=== PATIENT | male | born 1990 | race Caucasian/White ===

== ENCOUNTER → 2020-01-10 09:35 | Outpatient (CLI) | payer OTHER, MEDICAID, SELFPAY ==
--- NOTE | 2020-01-10 09:38 | DI.RAD.S_ITS ---
PROCEDURE: XR CHEST 2V INDICATIONS: Hx wheezing/chest tightness TECHNIQUE: 2 views of the chest were acquired. COMPARISON: None. FINDINGS: Surgical changes and devices: None. Lungs and pleura: Lungs are clear. Probable bronchial wall thickening seen on the lateral projection. No pleural effusions or pneumothorax. Mediastinum: Mediastinal contours are normal. Heart size is normal. Bones and chest wall: No suspicious bony abnormalities. Soft tissues appear unremarkable. IMPRESSION: Probable bronchial wall thickening. This could be seen in reactive airways disease. Lungs are clear. Dictated by: Iker Blackman M.D. on 01/10/2020 at 11:25 Approved by: Iker Blackman M.D. on 01/10/2020 at 11:26
== END ==
PROVIDERS: Referring Provider Registered Nurse Diabetes Educator; Visit Provider Registered Nurse Diabetes Educator
DX: R06.2 Wheezing (principal); R07.89 Other chest pain
CPT/HCPCS: 71046

== ENCOUNTER → 2020-02-13 14:37 | Outpatient (CLI) | payer OTHER, MEDICAID, SELFPAY ==
[2020-02-15 17:10] LABS: COVID19 Sendout Not Detected (Not Detect)
== END ==
PROVIDERS: Visit Provider Nurse Practitioner
DX: Z11.59 Encounter for screening for other viral diseases (principal)
CPT/HCPCS: 87635

== ENCOUNTER → 2020-02-16 08:49 | Outpatient (CLI) | payer OTHER, MEDICAID, SELFPAY ==
--- NOTE | 2020-02-22 10:26 | PM.PFT.1 ---
Pulmonary Function Test Referral & Results Date Patient Seen: 02/16/20 Requesting provider: Yogesh Garcia Results: The spirometry demonstrates an FVC of 6.41 L which is 109% of predicted. The FEV1 was measured at 4.98 L which is 104% of predicted. The FEV1/FVC ratio was 78 which is 94% of predicted. Following the administration of bronchodilator there was at 31% improvement in FEF 25-75%. Lung volumes show an SVC of 6.35 L which is 113% of predicted. The diffusing capacity was measured at 44.26 which is 126% of predicted. The maximum voluntary ventilation was normal Interpretation: This study demonstrates normal pulmonary function
== END ==
PROVIDERS: PCP Registered Nurse Diabetes Educator; Referring Provider Registered Nurse Diabetes Educator; Visit Provider Registered Nurse Diabetes Educator
DX: R06.2 Wheezing (principal); J98.8 Other specified respiratory disorders
CPT/HCPCS: 94060; 94726; 94729

== ENCOUNTER → 2020-10-09 12:08 | Outpatient (CLI) | payer OTHER, MEDICAID, SELFPAY ==
--- NOTE | 2020-10-09 12:09 | DI.US.S_ITS ---
LIMITED ULTRASOUND OF RIGHT BREAST: 10/09/2020 CLINICAL: Palpable right breast lump and tenderness. No prior exams were available for comparison. Color flow and real-time ultrasound of the right breast 10-1 o'clock region were performed on the areas of interest. There is an irregular heterogeneous area suggestive of fibroglandular tissue with indistinct margins in the right breast at 10-1 o'clock anterior depth 1 cm from the nipple. This irregular area of fibroglandular tissue is of mixed echogenicity. This correlates with palpable findings. Color flow imaging demonstrates that there is no increase in vascularity. IMPRESSION: INCOMPLETE: NEEDS ADDITIONAL IMAGING EVALUATION The irregular area of fibroglandular tissue in the right breast is indeterminate. A diagnostic mammogram is recommended. This exam was interpreted at Station ID: [id number]. Electronically Signed By: Kareem Vaca M.D. ddtadeo/:10/09/2020 14:04:11 letter sent: Additional Imaging Needed Ultrasound BI-RADS: 0 Indeterminate
== END ==
PROVIDERS: PCP Registered Nurse Diabetes Educator; Referring Provider Registered Nurse Diabetes Educator; Visit Provider Registered Nurse Diabetes Educator
DX: R92.8 Other abnormal and inconclusive findings on diagnostic imaging of breast (principal); N63.15 Unspecified lump in the right breast, overlapping quadrants
CPT/HCPCS: 76642

== ENCOUNTER → 2020-10-18 08:45 | Outpatient (CLI) | payer OTHER, MEDICAID, SELFPAY ==
--- NOTE | 2020-10-18 08:46 | DI.MG.S_ITS ---
MALE BILATERAL DIGITAL DIAGNOSTIC MAMMOGRAM 3D/2D: 10/18/2020 CLINICAL: Right breast mass. Comparison is made to exam dated: 10/09/2020 [facility] [employer]. There is a 2.7 cm irregular focal asymmetry in the right breast central to the nipple in the retroareolar region. This correlates as palpated, to the area of reported pain, and with ultrasound findings. Trace fibroglandular tissue in the left retroareolar breast. No other significant masses, calcifications, or other findings are seen in either breast. IMPRESSION: BENIGN Right breast palpable abnormality corresponds to retroareolar gynecomastia and is benign. Exam findings were conveyed to the patient. Patient is advised to monitor for significant change. Clinical follow-up is recommended. This exam was interpreted at Station ID: [id number]. Electronically Signed By: Iker Blackman M.D. slc/:10/18/2020 09:47:42 letter sent: Clinical Evaluation ACR BI-RADS Category 2: Benign Finding(s) [id number]
== END ==
PROVIDERS: PCP Registered Nurse Diabetes Educator; Referring Provider Registered Nurse Diabetes Educator; Visit Provider Registered Nurse Diabetes Educator
DX: N63.10 Unspecified lump in the right breast, unspecified quadrant (principal); N62 Hypertrophy of breast
CPT/HCPCS: 77066; G0279